=== PATIENT | female | born 1990 | race Caucasian/White ===

== ENCOUNTER 2023-03-18 18:20 | Emergency (ER) | payer OTHER, SELFPAY ==
[2023-03-18 18:26] VITALS: BP 134/82; PULSE 62; RESP 16; TEMP 35.8; O2SAT 100
--- NOTE | 2023-03-18 18:44 | ED.GENADULT ---
HPI - General Adult General Chief complaint: Animal Bite <MAY Magana Last Filed: 03/18/23 20:32> Stated complaint: Bee sting to left index finger <MAY Magana Last Filed: 03/18/23 20:32> Time Seen by Provider: 03/18/23 18:30 <Van Tran PA-C - Last Filed: 03/18/23 20:32> Source: patient <MAY Magana Last Filed: 03/18/23 20:32> Mode of arrival: ambulatory <MAY Magana Last Filed: 03/18/23 20:32> Limitations: no limitations <MAY Magana Last Filed: 03/18/23 20:32> History of Present Illness HPI narrative: This is a 32-year-old female who presents to the ED with chief complaint of a yellowjacket sting that occurred yesterday evening. Patient reports that stung her in the proximal dorsal index finger on the left hand. Patient states she had immediate hand swelling. She took Zyrtec last night. Today she noticed that the swelling was continuing to spread with vesicular lesions popping up. She also reports some discoloration to the index finger more distally so she came into the department for further evaluation. She reports it is uncomfortable due to the swelling but not overtly painful. Denies fevers, chills, nausea, vomiting, shortness of breath or difficulty swallowing. Denies any other known allergies. <Van Tran PA-C - Last Filed: 03/18/23 20:32> Related Data Allergies/adverse reactions: Allergies Allergy/AdvReac Type Severity Reaction Status Date / Time No Known Allergies Allergy Verified 03/18/23 19:07 <MAY Magana Last Filed: 03/18/23 20:32> Exam Narrative: GENERAL: Well-appearing, well-nourished, and in no acute distress. HEAD: Normocephalic, atraumatic. EYES: PERRLA and EOMI. ENT: Nares clear, no rhinorrhea or epistaxis. Mucous membranes moist. Oropharynx without tonsillar hypertrophy exudate or other lesions. NECK: Supple. No adenopathy or masses. CHEST: No respiratory distress. Clear to auscultation. No wheezes rales or rhonchi HEART: Regular rate and rhythm. No murmur heard. Normal peripheral pulses. ABDOMEN: Soft, nontender, nondistended, normal active bowel sounds. MSK: Left hand: Crusted over lesion to the proximal dorsal index finger. Swelling throughout the index finger hand throughout the left hand. Scant serosanguineous drainage from the dorsal lesions. No pain with passive extension. No pain along the tendon sheath. No fusiform swelling. Minimal tenderness. Mild pain with passive flexion. Right hand: Benign. SKIN: Erythematous/purple discoloration to the dorsal left index finger. Cap refill intact throughout. NEURO: Alert and oriented x3. No focal deficits. PSYCH: Normal mood and affect. <Van Tran PA-C - Last Filed: 03/18/23 20:32> Course ASSET PROTECTION REPRESENTATIVE/PA Physician Supervision For this patient encounter, I reviewed the ASSET PROTECTION REPRESENTATIVE or PA documentation, treatment plan, and I was responsible for the medical decision making; and I had [id number] time with this patient. <Travis Thompson MD - Last Filed: 03/18/23 20:40> Vital Signs Vital signs: Vital Signs Temperature 96.4 F L 03/18/23 18:26 Pulse Rate 62 03/18/23 18:26 Respiratory Rate 16 03/18/23 18:26 Blood Pressure 134/82 03/18/23 18:26 Pulse Oximetry 100 03/18/23 18:26 Temperature 96.4 F L 03/18/23 18:26 Pulse Rate 69 03/18/23 20:03 Respiratory Rate 15 03/18/23 20:03 Blood Pressure 108/82 03/18/23 20:03 Pulse Oximetry 99 03/18/23 20:03 <Van Tran PA-C - Last Filed: 03/18/23 20:32> Vital Signs Temperature 96.4 F L 03/18/23 18:26 Pulse Rate 62 03/18/23 18:26 Respiratory Rate 16 03/18/23 18:26 Blood Pressure 134/82 03/18/23 18:26 Pulse Oximetry 100 03/18/23 18:26 Temperature 96.4 F L 03/18/23 18:26 Pulse Rate 69 03/18/23 20:03 Respiratory Rate 15 03/18/23 20:03 Blood Pressure 108/82 03/18/23 20:03 Pulse Oximetry 99 03/18/23 20:03
[2023-03-18] MEDS: diphenhydrAMINE HCl INJ 50 MG/ML VIAL 25 MG IV PUSH (19:00)
[2023-03-18] MEDS: predniSONE 20 MG TABLET 40 MG PO (19:06)
[2023-03-18 19:07] LABS: Basophils Percent Auto 0.3 % (0.2-1.2); Eosinophils Absolute Auto 0.2 K/mm3 (0-0.3); Eosinophils Percent Auto 2.8 % (0-4.4); Hematocrit 42.1 % (37.0-47.0); Hemoglobin 14.1 g/dL (12.0-15.0); Immature Granulocyte Absolute 0.01 K/mm3 (0.00-0.031); Immature Granulocyte Percent A 0.2 % (0-0.5); Lymphocytes Absolute Auto 1.63 K/mm3 (0.9-3.2); Lymphocytes Percent Auto 27.3 % (18.3-44.2); Mean Corpuscular HGB Conc 33.5 g/dl (32-36); Mean Corpuscular Hemoglobin 32.9 pg (26-34); Mean Corpuscular Volume 98.4 fl (80-100); Mean Platelet Volume 9.8 fl (7.4-10.4); Monocytes Absolute Auto 0.7 K/mm3 (0.1-0.6); Monocytes Percent Auto 10.9 % (2.6-8.5); Neutrophils Absolute Auto 3.5 K/mm3 (1.3-6.7); Neutrophils Percent Auto 58.5 % (45.5-73.1); Platelet Count Result 223 k/mm3 (150-375); Red Blood Count 4.28 M/mm3 (4.2-5.4); Red Cell Distribution Width 12.9 % (11.5-14.5)
[2023-03-18] MEDS: Please add drug allergy info to patient profile. 1 EACH XX (19:07)
[2023-03-18 19:18] LABS: Alanine Aminotransferase 24 U/L (6-35); Albumin Level 4.5 g/dL (3.5-5.1); Alkaline Phosphatase 44 U/L (38-126); Anion Gap 4 mmol/L (8-16); Aspartate Amino Transferase 29 U/L (14-36); Bilirubin,Total 0.5 mg/dL (0.2-1.3); Blood Urea Nitrogen 11 mg/dL (7-17); Carbon Dioxide 33 mmol/L (22-30); Chloride 102 mmol/L (98-107); Estimated CRCL calculation 78 ml/min; Estimated Glomerular Filt Rate > 60; Glucose 87 mg/dL (65-110); Potassium 4.1 mmol/L (3.4-5.0); Sodium 139 mmol/L (137-145)
[2023-03-18 20:03] VITALS: BP 108/82; PULSE 69; RESP 15; O2SAT 99
== END 2023-03-18 20:04 | disposition home or self-care (01) ==
PROVIDERS: Emergency Provider Physician Assistant; PCP Pediatrics
DX: T63.461A Toxic effect of venom of wasps, accidental (unintentional), initial encounter (principal)
CPT/HCPCS: 36415; 80053; 85025; 96374; 99284; J1200; J7512

== ENCOUNTER 2025-03-22 21:48 | Emergency (ER) | payer MEDICAID, SELFPAY ==
--- NOTE | ~2025-03-22 | XR_ITS ---
XR toe 1st LT min 2V Ordering provider: Rocio Crowder PA-C History: . injury. INJURY TO DISTAL 1ST TOE . Comparison: None. FINDINGS: BONES: No acute fracture or dislocation. JOINT SPACES: Normal. SOFT TISSUES: Normal. IMPRESSION: No acute osseous abnormality. Reviewed, dictated and finalized at location A.
--- OUTSIDE RECORDS SUMMARY | 2025-03-22 21:50 | XMS_ITS | Referral Summary ---
Author Organization [facility] Address [address] [place] [id number] Care Team Providers Care Home Health Care Worker Name Role Phone Rita Carrera MD Primary Care Provider + Allergies No known active allergies Medications amitriptyline (ELAVIL) 10 mg tablet Take 10 mg by mouth nightly at bedtime 2 Active venlafaxine XR (EFFEXOR-XR) 37.5 mg 24 hr capsule Take 37.5 mg by mouth 2 Active triamcinolone (KENALOG) 0.1 % creamIndication s:Allergic contact dermatitis due to cosmetics Apply topically 3 (three) times a day for 10 days 30 g 2 Active predniSONE (DELTASONE) 10 mg tabletIndicatio ns:Allergic contact dermatitis due to cosmetics Take 4 tablets days 1-3, take 3 tablets days 4-6, take 2 tablets days 7-9, take 1 tablet days 10-14 32 tablet 2 Active Active Problems Problem Noted Date Diagnosed Date Rash 01/27/2016 Social History Tobacco Use Types Packs/Day Years Used Date Smoking Tobacco: Former Personal Safety Answer Date Recorded Getting School Help Needed Not on file 11/05 Comments Unknown Sex and Gender Information Value Date Recorded Sex Assigned at Not on file 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 Gender Identity Not on file Sexual Orientation Not on file Last Filed Vital Signs Vital Sign Reading Time Taken Comments Blood Pressure 111/76 03/13/2022 7:42 PM CDT Pulse 78 03/13/2022 7:42 PM CDT Temperature 37 C (98.6 F) 03/13/2022 7:42 PM CDT Respiratory Rate 24 03/13/2022 7:42 PM CDT Oxygen Saturation 98% 03/13/2022 7:42 PM CDT Inhaled Oxygen Concentration - - Weight 67.1 kg (148 lb) 03/13/2022 7:42 PM CDT Height 165.1 cm (5' 5) 03/13/2022 7:42 PM CDT Body Mass Index 24.63 03/13/2022 7:42 PM CDT Plan of Treatment Not on file Insurance * Guarantor: Odalys Sanchez Account Type Relation to Patient Date of Phone Billing Address Personal/Family Self [address] [place] [phone] [facility] CHOICE PLUS [facility] H[facility]/PPO Address: [facility] [address] [place] [address] * Guarantor: Odalys Sanchez Account Type Relation to Patient Date of Phone Billing Address Personal/Family Self [address] [place] [phone] Care Teams Home Health Care Worker Relationship Specialty Start Date End Date Rita Carrera MD [address] [place] [address] PCP - General Internal Medicine 03/13/22
--- OUTSIDE RECORDS SUMMARY | 2025-03-22 21:50 | XMS_ITS | Clinical Summary ---
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
--- OUTSIDE RECORDS SUMMARY | 2025-03-22 21:50 | XMS_ITS | Clinical Summary ---
Author Organization [facility] Address [address] [place] [address] Care Team Providers Care Parts Technician Name Role Phone Unavailable Primary Care Provider Unavailabl e Source Comments [facility],non-owned Affiliates and Associated Physician Practices is amultiple site organization consisting of ambulatory clinics and hospital sitesin [place], [place], [place] and [place]. This disclosure is being madepursuant to the Care Everywhere program and may not contain all information available regarding this patient. Last updated 18.[facility] Medications * Be aware that medications may not be up to date on this document. Alwaysverify current medications with the patient. ibuprofen (MOTRIN) 800 MG tablet Take 800 mg by mouth q8h PRN (Pain). 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 Gender Identity Not on file Sexual Orientation Not on file Last Filed Vital Signs Vital Sign Reading Time Taken Comments Blood Pressure 126/68 07/02/2017 8:39 PM CDT Pulse 78 07/02/2017 8:39 PM CDT Temperature 37.2 C (99 F) 07/02/2017 8:39 PM CDT Respiratory Rate 18 07/02/2017 8:39 PM CDT Oxygen Saturation - - Inhaled Oxygen Concentration - - Weight 60.8 kg (134 lb) 07/02/2017 8:39 PM CDT Height 167.6 cm (5' 6) 07/02/2017 8:39 PM CDT Body Mass Index 21.63 07/02/2017 8:39 PM CDT Plan of Treatment Health Maintenance Due Date Last Done Comments HIV SCREENING 2003 HEPATITIS C SCREENING 07/16/2006 DTAP/TDAP/TD VACCINES (1 - Tdap) 2007 HEPATITIS B VACCINE (1 of 3 - 19+ 3-dose series) 2007 HPV VACCINE (1 - 3-dose SCDM series) 2015 COVID-19 VACCINE (1 - 2023-2 5 season) 2024 DEPRESSION SCREENING 09/12/2024 INFLUENZA VACCINE (#1) 2025 ZOSTER VACCINE (1 of 2) 2038 HIB VACCINE Aged Out No longer eligi ble based on patient's age to complete this topic MENINGOCOCCAL (Group B) VACC INE SHARED DECISION-MAKING Aged Out No longer eligibl e based on patient's age to complete this topic MENINGOCOCCAL GROUPS A/C/Y/W VACCINE Aged Out No longer eligible b ased on patient's age to complete this topic PNEUMOCOCCAL VACCINE Aged Out No long er eligible based on patient's age to complete this topic
[2025-03-22 21:53] VITALS: BP 148/92; PULSE 86; RESP 16; TEMP 36.4; O2SAT 100
--- OUTSIDE RECORDS SUMMARY | 2025-03-22 23:51 | XMS_ITS | Referral Summary ---
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
--- OUTSIDE RECORDS SUMMARY | 2025-03-22 23:51 | XMS_ITS | Clinical Summary ---
Author Organization [facility] Address [address] [facility] [place] [address] Care Team Providers Care Orthodontist Small Business Owner Name Role Phone Unavailable Primary Care Provider Unavailabl e Source Comments [facility],non-owned Affiliates and Associated Physician Practices is amultiple site organization consisting of ambulatory clinics and hospital sitesin [place], [place], [place] and [place]. This disclosure is being madepursuant to the Care Everywhere program and may not contain all information available regarding this patient. 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
--- OUTSIDE RECORDS SUMMARY | 2025-03-22 23:51 | XMS_ITS | Clinical Summary ---
Author Organization 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
--- NOTE | 2025-03-23 00:43 | ED_ITS ---
HPI - Extremity Injury (Lower) General Chief Complaint: Extremity Injury, Lower Stated Complaint: L GREAT TOE INJURY Time Seen by Provider: 03/22/25 23:15 Source: patient Mode of arrival: ambulatory Limitations: no limitations History of Present Illness HPI Narrative: This is a 34 year old female that presents to the ER for left great toe injury. Sustained a laceration to the end of the toe. She has been trying to keep it clean, but is concerned it could be infected. Denies fevers or drainage. Related Data Allergies Allergy/AdvReac Type Severity Reaction Status Date / Time No Known Allergies Allergy Verified 03/22/25 21:49 Review of Systems Review of Systems: All systems reviewed & are unremarkable except as noted in HPI and below PMFSH Past Medical History Medical History (Updated 03/23/25 @ 01:18 by Rocio Crowder PA-C) ADHD Exam Narrative: GENERAL: Well-appearing, well-nourished, and in no acute distress. HEAD: Normocephalic, atraumatic. EYES: EOMI. EXTREMITIES: Normal range of motion. No edema. Normal DP pulse. Skin tear to the tip of the great toe with very mild surrounding redness. No abnormal drainage or overt swelling SKIN: Warm, dry, no rash. NEURO: No focal deficits. Alert and oriented x3. PSYCH: Normal mood and affect Course Vital Signs Vital signs: Vital Signs Temperature 97.6 F 03/22/25 21:53 Pulse Rate 86 03/22/25 21:53 Respiratory Rate 16 03/22/25 21:53 Blood Pressure 148/92 H 03/22/25 21:53 Pulse Oximetry 100 03/22/25 21:53 Oxygen Delivery Room Air 03/22/25 21:53 Temperature 97.6 F 03/22/25 21:53 Pulse Rate 81 03/23/25 01:00 Respiratory Rate 17 03/23/25 01:00 Blood Pressure 132/86 03/23/25 01:00 Pulse Oximetry 100 03/23/25 01:00 Oxygen Delivery Room Air 03/22/25 21:53 MDM - Extremity Injury (Lower) MDM Narrative Medical decision making narrative: Patient presents to the emergency department for left great toe injury sustained 5 days ago. Patient has a superficial laceration in the area, largely appears well healing. No abnormal drainage. Mild surrounding redness. She is afebrile and nontoxic appearing. Great toe x-ray without acute osseous abnormalities.. Was cleansed and covered with antibiotic ointment and bandage. She was instructed on continued wound care. She is to follow up with primary provider. She was given warnings to return to the ER Differential Diagnosis Differential diagnosis: Likely other (laceration, abrasion, cellulitis, toe fracture) Imaging Data Radiologist's impression: ITS Impressions Toe X-Ray 03/22/25 22:48 IMPRESSION: No acute osseous abnormality. Critical Care Time Critical Care Time Critical Care Time: No Discharge Plan Discharge Clinical Impression: Laceration of toe Qualifiers: Encounter type: initial encounter Toe: great toe Damage to nail status: without damage Foreign body presence: without foreign body Laterality: left Qualified Code(s): S91.112A - Laceration without foreign body of left great toe without damage to nail, initial encounter Patient Disposition: Home Condition: Stable Instructions: Antibiotic Form, Laceration Without Closure (ED) Additional Instructions: Return to the emergency department if you experience fever, redness or swelling of your wound, abnormal drainage from your wound, or any other symptoms that are concerning to you. Apply antibiotic ointment daily. Clean with mild soap and water daily. Take oral antibiotics as prescribed Follow-up with your primary care doctor for wound check Patient Language: Citizen Of [place] Prescriptions: New cephalexin 500 mg capsule 500 mg PO Q8H 5 Days Qty: 15 0RF No Action methylprednisolone [Medrol (Domingo)] 4 mg tablets,dose pack 4 mg PO DAILY Qty: 21 0RF methylprednisolone [Medrol (Domingo)] 4 mg tablets,dose pack 4 mg PO DAILY Qty: 21 0RF Follow-up/Referrals: Gia Barnes DO [Physician] - PHYSICIAN NOT ON STAFF,NONSTAFF [Primary Care Provider] -
[2025-03-23 01:00] VITALS: BP 132/86; PULSE 81; RESP 17; O2SAT 100
== END 2025-03-23 01:01 | disposition home or self-care (01) ==
PROVIDERS: Emergency Provider Physician Assistant
DX: S91.112A Laceration without foreign body of left great toe without damage to nail, initial encounter (principal); W22.8XXA Striking against or struck by other objects, initial encounter
CPT/HCPCS: 73660; 99283